=== PATIENT | female | born 2005 | race Caucasian/White ===

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

== ENCOUNTER 2023-08-16 03:02 | Emergency (ER) | payer OTHER ==
[2023-08-16 03:53] VITALS: RESP 18
[2023-08-16] MEDS: IBUPROFEN 600 MG TAB PO STA (04:00)
--- NOTE | 2023-08-16 05:46 | ED ---
General Adult HPI - General Chief complaint: ENT Stated complaint: throat pain Time Seen by Provider: 08/16/23 03:10 Source: patient Mode of arrival: ambulatory Limitations: no limitations - History of Present Illness Initial comments: 18-year-old female presents to the emergency department reporting fevers, body aches and sore throat. She states that her symptoms started today. Her daughter has similar symptoms. She took her daughter to be evaluated. She tested negative for strep, COVID and influenza. They did place her on antibiotics. The patient now has similar symptoms. She took Tylenol around 7 PM. She admits to nausea without vomiting. No chest pain. No cough. No abdominal pain. No changes in her bowel or bladder habits. No other alleviating, precipitating relieving factors - Related Data Previous Rx's Medication Instructions Recorded Upg-Qmyn-Akzsa Acid 1 each PO DAILY #100 cap 09/10/21 [-U Capsule (formulary)] Ferrous Sulfate [Iron (65 MG 325 mg PO W/LUNCH #30 tab 03/05/22 Elemental)] Levofloxacin [Levaquin] 750 mg PO DAILY 10 Days #10 tab 03/05/22 Amoxicillin 500 mg PO Q12HR #20 cap 08/16/23 Allergies Allergy/AdvReac Type Severity Reaction Status Date / Time No Known Allergies Allergy Verified 08/16/23 03:10 Review of Systems ROS Statement: Those systems with pertinent positive or pertinent negative responses have been documented in the HPI. ROS Other: All systems not noted in ROS Statement are negative. Past Medical History Past Medical History: No Reported History Additional Past Medical History / Comment(s): MIGRAINES History of Any Multi-Drug Resistant Organisms: None Reported Additional Past Surgical History / Comment(s): EYE SURGERY Past Anesthesia/Blood Transfusion Reactions: No Reported Reaction Past Psychological History: No Psychological Hx Reported Smoking Status: Former smoker Past Drug Use History: Marijuana - Past Family History Father Family Medical History: No Reported History General Exam Limitations: no limitations General appearance: alert, in no apparent distress Head exam: Present: atraumatic, normocephalic, normal inspection Eye exam: Present: normal appearance, PERRL, EOMI. Absent: scleral icterus, conjunctival injection, periorbital swelling ENT exam: Present: other (Patient has 4+ tonsils. Erythematous with white plaquing. No signs of peritonsillar abscess) Neck exam: Present: normal inspection. Absent: tenderness, meningismus, lymphadenopathy Respiratory exam: Present: normal lung sounds bilaterally. Absent: respiratory distress, wheezes, rales, rhonchi, stridor Cardiovascular Exam: Present: regular rate, normal rhythm, normal heart sounds. Absent: systolic murmur, diastolic murmur, rubs, gallop, clicks GI/Abdominal exam: Present: soft, normal bowel sounds. Absent: distended, tenderness, guarding, rebound, rigid Extremities exam: Present: normal inspection, full ROM, normal capillary refill. Absent: tenderness, pedal edema, joint swelling, calf tenderness Back exam: Present: normal inspection Neurological exam: Present: alert, oriented X3, CN II-XII intact Psychiatric exam: Present: normal affect, normal mood Skin exam: Present: warm, dry, intact, normal color. Absent: rash Course Vital Signs 08/16/23 08/16/23 03:08 06:15 Temperature 98.7 F 98.5 F Pulse Rate 113 H 92 Respiratory 18 18 Rate Blood Pressure 124/69 120/68 O2 Sat by Pulse 99 99 Oximetry Medical Decision Making - Medical Decision Making Was pt. sent in by a medical professional or institution (, PA, AIR BRUSH ARTIST, urgent care, hospital, or snf...) When possible be specific @ -No Did you speak to anyone other than the patient for history (EMS, parent, family, police, friend...)? What history was obtained from this source @ -No Did you review nursing and triage notes (agree or disagree)? Why? @ -I reviewed and agree with nursing and triage notes Were old charts reviewed (outside hosp., previous admission, EMS record, old EKG, old radiological studies, urgent care reports/EKG's, snf records)? Report findings @ -No old charts were reviewed Differential Diagnosis (chest pain, altered mental status, abdominal pain women, abdominal pain men, vaginal bleeding, weakness, fever, dyspnea, syncope, headache, dizziness, GI bleed, back pain, seizure, CVA, palpatations, mental health, musculoskeletal)? @ -Strep, COVID, influenza EKG interpreted by me (3pts min.). @ -Not done X-rays interpreted by me (1pt min.). @ -None done CT interpreted by me (1pt min.). @ -None done U/S interpreted by me (1pt. min.). @ -None done What testing was considered but not performed or refused? (CT, X-rays, U/S, labs)? Why? @ -None What meds were considered but not given or refused? Why? @ -None Did you discuss the management of the patient with other professionals (professionals i.e. , PA, AIR BRUSH ARTIST, lab, RT, psych nurse, social science manager, in mold coater, teacher, disabilities services officer, case fitter)? Give summary @ -No Was smoking cessation discussed for >3mins.? @ -No Was critical care preformed (if so, how long)? @ -No Were there social determinants of health that impacted care today? How? (Homelessness, low income, unemployed, alcoholism, drug addiction, transportation, low edu. Level, literacy, decrease access to med. care, prison, rehab)? @ -No Was there de-escalation of care discussed even if they declined (Discuss DNR or withdrawal of care, Hospice)? DNR status @ -No What co-morbidities impacted this encounter? (DM, HTN, Smoking, COPD, CAD, Cancer, CVA, ARF, Chemo, Hep., AIDS, mental health diagnosis, sleep apnea, morbid obesity)? @ -None Was patient admitted / discharged? Hospital course, mention meds given and route, prescriptions, significant lab abnormalities, going to OR and other pertinent info. @ -Upon arrival patient was seen and evaluated in room 32. Thorough history and physical exam was performed. Patient is swabbed for influenza, COVID, RSV and strep. Strep is positive. Patient given a dose of Motrin and amoxicillin. She is additionally given a dose of Decadron. Patient will be discharged home and instructed to alternate Motrin and Tylenol for pain and fever. Take the amoxicillin as directed. Follow-up with her doctor and return for any new or worsening symptoms Undiagnosed new problem with uncertain prognosis? @ -No Drug Therapy requiring intensive monitoring for toxicity (Heparin, Nitro, Insulin, Cardizem)? @ -No Were any procedures done? @ -No Diagnosis/symptom? @ -Acute strep pharyngitis, acute pyrexia Acute, or Chronic, or Acute on Chronic? @ -Acute Uncomplicated (without systemic symptoms) or Complicated (systemic symptoms)? @ -Complicated to be out to see 20 4 AM and they are still not done they have been pending since 230-and there are several times to have them assign it to the radiologist states they still have not read it is not my Side effects of treatment? @ -No Exacerbation, Progression, or Severe Exacerbation? @ -No Poses a threat to life or bodily function? How? (Chest pain, [place], [place], pneumonia, PE, COPD, DKA, ARF, appy, cholecystitis, CVA, Diverticulitis, Homicidal, Suicidal, threat to staff... and all critical care pts) @ -No - Lab Data Lab Results 08/16/23 08/16/23 Range/Units 04:03 04:03 Influenza Type A (PCR) Not Detected (Not Detectd) Influenza Type B (PCR) Not Detected (Not Detectd) RSV (PCR) Not Detected (Not Detectd) SARS-CoV-2 (PCR) Not Detected (Not Detectd) Group A Strep (PCR) DETECTED A (Not Detectd) Disposition Clinical Impression: Strep pharyngitis Disposition: HOME SELF-CARE Condition: Stable Instructions (If sedation given, give patient instructions): Pharyngitis (ED) Additional Instructions: Please take the antibiotics as directed. May alternate Motrin with Tylenol every 4 hours for pain control. Return for any new or worsening symptoms Prescriptions: Amoxicillin 500 mg PO Q12HR #20 cap Is patient prescribed a controlled substance at d/c from ED?: No Referrals: None,Stated [Primary Care Provider] - 1-2 days Time of Disposition: 05:59
[2023-08-16] MEDS: dexAMETHasone 2 MG TAB PO STA (06:11)
[2023-08-16] MEDS: AMOXICILLIN 500 MG CAP PO STA (06:11)
[2023-08-16 06:20] VITALS: BP 120/68; PULSE 92; TEMP 98.5
== END 2023-08-16 06:16 | disposition home or self-care (01) ==
LOC: EC 03:02
DX: J02.0 Streptococcal pharyngitis (principal); B95.0 Streptococcus, group A, as the cause of diseases classified elsewhere; F12.90 Cannabis use, unspecified, uncomplicated; Z87.891 Personal history of nicotine dependence
CPT/HCPCS: 87651; 87636; 99283; J8540